=== PATIENT | female | born 1990 | race African-American/Black ===

== ENCOUNTER 2016-02-20 10:49 | Emergency (ER) | payer OTHER ==
[2016-02-20] MEDS ORDERED: MOTRIN LIQUID PO ONE ×2 (11:10→11:17)
[2016-02-20 11:16] VITALS: BP 111/73
[2016-02-20] MEDS ORDERED: MOTRIN LIQUID ONE (11:18)
--- NOTE | 2016-02-20 11:46 | PROVIDER DOCUMENTATION ---
HPI-General Adult - General Source: patient - History of Present Illness -Gen Adult Nature of Presenting Problems: Reports with fever of 100.5 sinus pain ,chills,generalized bodyaches x 5 days. Reports feels like not emptying bladder. Quality of Pain: reports: aching Severity: reports: moderate Onset/Duration: reports: 5 days ago Timing: reports: still present Similar Symptoms Previously?: No Recently seen or treated by another doctor?: No <Daysi Molina - Last Filed: 02/20/16 12:44> <Vicky Geiger X - Last Filed: 02/20/16 12:58> - General Chief Complaint: Flu Symptoms Stated Complaint: COLD SX Time Seen by Provider: 02/20/16 11:30 Allergies/Adverse Reactions: Patient Allergies Allergy/AdvReac Type Severity Reaction Status Date / Time No Known Allergies Allergy Verified 06/12/15 11:24 Review of Systems - Adult - REVIEW OF SYSTEMS - ADULT Constitutional: reports: chills, fever. denies: fatique, night sweats Eyes: reports: no symptoms reported Ears, Nose, Mouth & Throat: reports: sinus problem. denies: ear pain, throat pain Cardiovascular: reports: no symptoms reported Respiratory: denies: cough, shortness of breath, wheezing Gastrointestinal: reports: no symptoms reported Genitourinary: reports: see HPI. denies: flank pain, frequent UTI's, hematuria , hesitency Musculoskeletal: reports: no symptoms reported Integumentary: reports: no symptoms reported Neurological: reports: no symptoms reported Psychiatric: reports: no symptoms reported Endocrine: reports: no symptoms reported Hematologic/Lymphatic: reports: no symptoms reported Allergic/Immunologic: reports: no symptoms reported All Other Systems: Reviewed and Negative <Daysi Molina - Last Filed: 02/20/16 12:44> Past History - Adult - PAST MEDICAL HISTORY-ADULT Review of Records: reports: Nursing Assessment Review Major Childhood Illnesses: reports: denies history Cardiovascular: reports: denies history Respiratory: reports: asthma Gastrointestinal: reports: denies history Genitourinary: reports: denies history Musculoskeletal: reports: denies history Neurological: reports: denies history Psychiatric: reports: denies history Endocrine/Immune: reports: denies history Other Conditions: reports: denies history - PRIOR SURGERIES/PROCEDURES Surgical/Procedure History: reports: none - IMMUNIZATION STATUS Childhood Immunizations: See Nurse Assessment Flu Vaccine: See Nurse Assessment - SOCIAL HISTORY Smoking: denies Substance Use: none/never <MolinaDaysi - Last Filed: 02/20/16 12:44> Physical Exam-General - PHYSICAL EXAM-ADULT Initial Vital Signs Reviewed: Yes - CONSTITUTIONAL General Appearance: alert, no apparent distress. negative: appears well - EYES Eyes: PERRL/EOMI, pink conjunctivae - HEAD, EARS, NOSE, MOUTH & THROAT HENMT: normocephalic/atraumatic, moist mucous membranes, normal ENT inspection, TMs normal, pharynx normal - NECK Neck: non-tender, full range of motion, supple, normal inspection - RESPIRATORY Respiratory: chest non-tender, lungs clear, normal breath sounds, no pleuratic chest pain, no respiratory distress, no accessory muscle use - CARDIOVASCULAR Cardiovascular: normal peripheral pulses, regular rate, rhythm, no edema, no gallop, no JVD, no murmur - GASTROINTESTINAL (ABDOMEN) Abdominal Exam: normal bowel sounds, soft, tenderness (ttp suprapubic) - LYMPHATIC Lymphatic: no adenopathy - MUSCULOSKELETAL Back Exam: normal inspection, no CVA tenderness, no vertebral tenderness Extremity: normal range of motion, non-tender, normal gait - SKIN Integumentary: normal color, normal turgor, warm/dry - NEUROLOGIC Neurologic: grossly normal, no motor/sensory deficits - PSYCHIATRIC Psych/Mental Status: normal mood/affect, normal thought content, normal thought process, oriented x 3 <Daysi Molina - Last Filed: 02/20/16 12:44> Progress - PLAN OF CARE/RESULTS Progress/Plan/Lab Results: Orders Category Date Time Status CHEST-2 VIEWS [RAD] Stat Exams 02/20/16 11:[address] Stat Lab 02/20/16 11:[address] Stat Lab 02/20/16 11:27 Ordered TEST-URINE [PREG] Stat Lab 02/20/16 11:[address] [URINALYSIS] Stat Lab 02/20/16 11:41 Or[address] URINE DRUG SCREEN PL Stat Lab 02/20/16 11:42 Uncollected Ibuprofen [Motrin Liquid] Med 02/20/16 11:17 Discontinued 100 mg PO NOW ONE Ibuprofen [Motrin Liquid] Med 02/20/16 11:18 Discontinued 400 mg .ROUTE .STK-MED ONE Ibuprofen [Motrin Liquid] Med 02/20/16 11:10 Discontinued 400 mg PO NOW ONE Vital Signs - 24 hr 02/20/16 11:12 Temperature 100.5 F H Pulse Rate 121 H Respiratory 22 Rate Blood Pressure 111/73 O2 Sat by Pulse 94 L Oximetry Laboratory Tests 02/20/16 02/20/16 02/20/16 11:30 11:30 11:30 Urine Source Urine Color Urine Clarity Urine pH Ur Specific [place] Urine Protein Urine Ketones Urine Blood Urine Nitrite Urine Bilirubin Urine Urobilinogen Urine Microscopic RBC Urine WBC Urine Microscopic WBC Ur Epithelial Cells Urine Bacteria Urine Glucose Urine Test Urine Opiates Screen NONE DETECTED Ur Oxycodone Screen NONE DETECTED Urine Methadone Screen NONE DETECTED Ur Barbituates Screen NONE DETECTED Ur Tricyclics Screen NONE DETECTED Ur Phencyclidine Scrn NONE DETECTED Ur Amphetamines Screen NONE DETECTED U Methamphetamines Scrn NONE DETECTED Urine MDMA Screen NONE DETECTED U Benzodiazepines Scrn NONE DETECTED Urine Cocaine Screen NONE DETECTED U Cannabinoids Screen NONE DETECTED Influenza A (Rapid) NEGATIVE Influenza B (Rapid) NEGATIVE Group A Strep Rapid NEGATIVE 02/20/16 02/20/16 11:30 11:41 Urine Source CLEAN CATCH Urine Color MATTHEW Urine Clarity CLEAR Urine pH 5.0 Ur Specific [place] 1.020 Urine Protein 1+(30 mg/dL) A Urine Ketones TRACE Urine Blood 4+ Urine Nitrite NEGATIVE Urine Bilirubin NEGATIVE Urine Urobilinogen NORMAL Urine Microscopic RBC 10-20 A Urine WBC 1+ A Urine Microscopic WBC <10 Ur Epithelial Cells >10 A Urine Bacteria 1+ Urine Glucose NEGATIVE Urine Test NEGATIVE Urine Opiates Screen Ur Oxycodone Screen Urine Methadone Screen Ur Barbituates Screen Ur Tricyclics Screen Ur Phencyclidine Scrn Ur Amphetamines Screen U Methamphetamines Scrn Urine MDMA Screen U Benzodiazepines Scrn Urine Cocaine Screen U Cannabinoids Screen Influenza A (Rapid) Influenza B (Rapid) Group A Strep Rapid - XRAY 1 XRAY: Bilateral XRAY Study: Chest Impression: Normal XRAY Interpretation: wood <Daysi Molina - Last Filed: 02/20/16 12:44> - PLAN OF CARE/RESULTS Progress/Plan/Lab Results: Laboratory Results - last 24 hr 02/20/16 02/20/16 02/20/16 11:30 11:30 11:30 Urine Source Urine Color Urine Clarity Urine pH Ur Specific [place] Urine Protein Urine Ketones Urine Blood Urine Nitrite Urine Bilirubin Urine Urobilinogen Urine Microscopic RBC Urine WBC Urine Microscopic WBC Ur Epithelial Cells Urine Bacteria Urine Glucose Urine Test Urine Opiates Screen NONE DETECTED Ur Oxycodone Screen NONE DETECTED Urine Methadone Screen NONE DETECTED Ur Barbituates Screen NONE DETECTED Ur Tricyclics Screen NONE DETECTED Ur Phencyclidine Scrn NONE DETECTED Ur Amphetamines Screen NONE DETECTED U Methamphetamines Scrn NONE DETECTED Urine MDMA Screen NONE DETECTED U Benzodiazepines Scrn NONE DETECTED Urine Cocaine Screen NONE DETECTED U Cannabinoids Screen NONE DETECTED Influenza A (Rapid) NEGATIVE Influenza B (Rapid) NEGATIVE Group A Strep Rapid NEGATIVE 02/20/16 02/20/16 11:30 11:41 Urine Source CLEAN CATCH Urine Color MATTHEW Urine Clarity CLEAR Urine pH 5.0 Ur Specific [place] 1.020 Urine Protein 1+(30 mg/dL) A Urine Ketones TRACE Urine Blood 4+ Urine Nitrite NEGATIVE Urine Bilirubin NEGATIVE Urine Urobilinogen NORMAL Urine Microscopic RBC 10-20 A Urine WBC 1+ A Urine Microscopic WBC <10 Ur Epithelial Cells >10 A Urine Bacteria 1+ Urine Glucose NEGATIVE Urine Test NEGATIVE Urine Opiates Screen Ur Oxycodone Screen Urine Methadone Screen Ur Barbituates Screen Ur Tricyclics Screen Ur Phencyclidine Scrn Ur Amphetamines Screen U Methamphetamines Scrn Urine MDMA Screen U Benzodiazepines Scrn Urine Cocaine Screen U Cannabinoids Screen Influenza A (Rapid) Influenza B (Rapid) Group A Strep Rapid Vital Signs Temp Pulse Resp BP Pulse Ox 02/20/16 11:12 100.5 F H 121 H 22 111/73 94 L No Known Allergies Allergy (Verified 06/12/15 11:24) No Home Medications 06/12/15 Laboratory 02/20/16 02/20/16 02/20/16 11:41 11:30 11:30 Urine Source CLEAN CATCH Urine Color MATTHEW Urine Clarity CLEAR Urine pH 5.0 Ur Specific [place] 1.020 Urine Protein 1+(30 mg/dL) A Urine Ketones TRACE Urine Blood 4+ Urine Nitrite NEGATIVE Urine Bilirubin NEGATIVE Urine Urobilinogen NORMAL Urine Microscopic RBC 10-20 A Urine WBC 1+ A Urine Microscopic WBC <10 Ur Epithelial Cells >10 A Urine Bacteria 1+ Urine Glucose NEGATIVE Urine Test NEGATIVE Urine Opiates Screen NONE DETECTED Ur Oxycodone Screen NONE DETECTED Urine Methadone Screen NONE DETECTED Ur Barbituates Screen NONE DETECTED Ur Tricyclics Screen NONE DETECTED Ur Phencyclidine Scrn NONE DETECTED Ur Amphetamines Screen NONE DETECTED U Methamphetamines Scrn NONE DETECTED Urine MDMA Screen NONE DETECTED U Benzodiazepines Scrn NONE DETECTED Urine Cocaine Screen NONE DETECTED U Cannabinoids Screen NONE DETECTED Influenza A (Rapid) Influenza B (Rapid) Group A Strep Rapid 02/20/16 02/20/16 11:30 11:30 Urine Source Urine Color Urine Clarity Urine pH Ur Specific [place] Urine Protein Urine Ketones Urine Blood Urine Nitrite Urine Bilirubin Urine Urobilinogen Urine Microscopic RBC Urine WBC Urine Microscopic WBC Ur Epithelial Cells Urine Bacteria Urine Glucose Urine Test Urine Opiates Screen Ur Oxycodone Screen Urine Methadone Screen Ur Barbituates Screen Ur Tricyclics Screen Ur Phencyclidine Scrn Ur Amphetamines Screen U Methamphetamines Scrn Urine MDMA Screen U Benzodiazepines Scrn Urine Cocaine Screen U Cannabinoids Screen Influenza A (Rapid) NEGATIVE Influenza B (Rapid) NEGATIVE Group A Strep Rapid NEGATIVE Orders Category Date Time Status CHEST-2 VIEWS [RAD] Stat Exams 02/20/16 11:[address] Stat Lab 02/20/16 11:[address] Stat Lab 02/20/16 11:30 Completed TEST-URINE [PREG] Stat Lab 02/20/16 11:[address] [URINALYSIS] Stat Lab 02/20/16 11:41 Completed URINE DRUG SCREEN PL Stat Lab 02/20/16 11:30 Completed URINE MICROSCOPIC [URINALYSIS] Stat Lab 02/20/16 11:41 Completed Ibuprofen [Motrin Liquid] Med 02/20/16 11:17 Discontinued 100 mg PO NOW ONE Ibuprofen [Motrin Liquid] Med 02/20/16 11:18 Discontinued 400 mg .ROUTE .STK-MED ONE Ibuprofen [Motrin Liquid] Med 02/20/16 11:10 Discontinued 400 mg PO NOW ONE - REASSESSMENT Reassessment #1 Time Reassessed: 12:56 Status: improving (Pt denies abd pain and no concerns for GB issues ot appy. Declined abd pain work up.) <Vicky Geiger - Last Filed: 02/20/16 12:58> Departure - Departure Time of Disposition Order: 12:44 Certified Medical Emergency: Emergent <Daysi Molina - Last Filed: 02/20/16 12:44> - Departure Time of Disposition Order: 12:57 Certified Medical Emergency: Emergent <Vicky Geiger - Last Filed: 02/20/16 12:58> - Departure DIAGNOSIS: Flu-like symptoms, UTI (urinary tract infection) Disposition: HOME 01 Condition: Stable Additional Instructions: ED Follow Up Instructions: You have been treated by a care provider in the Emergency Department. These instructions are being provided to you so you can have an understanding of how to care for yourself upon discharge. Upon discharge from the Emergency Department, you are responsible for making arrangements for follow-up care by a physician of your choice. Take all prescribed medications as directed. Return to the Emergency Department immediately for any new or worsening symptoms. You may call the Physician Referral phone number at [phone] to obtain a list of Physicians who are taking new patients. Prescriptions: Sulfamethoxazole/Trimethoprim [Bactrim Ds Tablet] 1 each PO BID #14 tablet Referrals: None,PCP [Primary Care Provider] - Attestation - Scribe Verification/Attestation Scribe:: Daysi Molina Acting as Scribe for:: Vicky Geiger Scribe documention review:: This chart was documented by a scribe and accurately reflects the service the provider performed and the decisions made by the provider. <Daysi Molina - Last Filed: 02/20/16 12:44> Physician Attestation
[2016-02-20 12:14] LABS: UR AMPHETAMINES QUAL NONE DETECTED (NONE DETECT); UR BARBITUATES QUAL NONE DETECTED (NONE DETECT); UR BENZODIAZEPIN QUAL NONE DETECTED (NONE DETECT); UR CANNABINOIDS QUAL NONE DETECTED (NONE DETECT); UR COCAINE QUAL NONE DETECTED (NONE DETECT); UR MDMA QUAL NONE DETECTED (NONE DETECT); UR METHADONE QUAL NONE DETECTED (NONE DETECT); UR METHAMPHETAMINE QUAL NONE DETECTED (NONE DETECT); UR OPIATES QUAL NONE DETECTED (NONE DETECT); UR OXYCODONE QUAL NONE DETECTED (NONE DETECT); UR PCP QUAL NONE DETECTED (NONE DETECT); UR TCA QUAL NONE DETECTED (NONE DETECT)
--- NOTE | 2016-02-20 12:26 | Diag Imaging Result Document ---
PROCEDURE NAME: CHEST-2 VIEWS - 02/20/2016 CHEST X-RAY, 2 VIEWS: COMPARISON: 01/18/2015. FINDINGS: The lungs are normally expanded and clear. Heart size and mediastinal contours are normal. No pneumothorax or pleural effusion. IMPRESSION: Negative exam.
[2016-02-20 12:29] LABS: URINE SOURCE CLEAN CATCH
[2016-02-20 12:39] LABS: CLARITY CLEAR (CLEAR); COLOR AMBER
[2016-02-20 12:40] LABS: BILIRUBIN URINE NEGATIVE (NEGATIVE); BLOOD URINE 4+ (NEGATIVE); GLUCOSE URINE NEGATIVE (NEGATIVE); LEUKOCYTES URINE 1+ (NEGATIVE); NITRITE URINE NEGATIVE (NEGATIVE); PROTEIN URINE 1+(30 mg/dL) mg/dL (NEGATIVE); URINE EPITHELIAL CELLS >10 /HPF (<10); URINE MICROSCOPIC NEEDED? YES; URINE WBC <10 /HPF (<10); UROBILINOGEN URINE NORMAL
== END 2016-02-20 13:16 | disposition home or self-care (01) ==
LOC: P.ED 10:49
DX: J11.1 Influenza due to unidentified influenza virus with other respiratory manifestations (principal); N39.0 Urinary tract infection, site not specified; R50.9 Fever, unspecified; R10.30 Lower abdominal pain, unspecified
CPT/HCPCS: 71020; 81001; 81025; 87081; 87430; 87804; 99284; G0477